=== PATIENT | male | born 1995 | race Caucasian/White ===

== ENCOUNTER 2020-09-17 10:48 | Emergency (ER) | payer OTHER, BC ==
[~2020-09-17] VITALS: Ht 172.7 cm; Wt 77.3 kg
[2020-09-17] MEDS ORDERED: CEPHALEXIN500 M1 PO (11:58)
[2020-09-17 13:00] VITALS: BP 155/93
== END 2020-09-17 13:02 | disposition home or self-care (01) ==
LOC: ED 10:48
DX: S69.92XA Unspecified injury of left wrist, hand and finger(s), initial encounter (principal); Z89.022 Acquired absence of left finger(s); Z23 Encounter for immunization; W26.8XXA Contact with other sharp object(s), not elsewhere classified, initial encounter; Y99.0 Civilian activity done for income or pay
CPT/HCPCS: 90715